=== PATIENT | male | born 2000 | race Caucasian/White ===

== ENCOUNTER 2025-02-18 09:38 | Inpatient (IN) | payer BC ==
[~2025-02-18] VITALS: Ht 193 cm; Wt 99.3 kg
[2025-02-18] MEDS: MORPHINE SULFATE 4 MG/ML INJ (FOR IV/IM USE) IV ONE (10:17)
[2025-02-18] MEDS: ONDANSETRON HCL 4MG/2ML INJ IV ONE (10:17)
[2025-02-18] MEDS: SODIUM CHLORIDE 0.9% 1,000 ML IV ONE (10:17)
[2025-02-18 10:34] LABS: BASOPHILS % 1.1 % (0.0-2.0); EOSINOPHILS % 0.5 % (0.0-5.0); HEMATOCRIT. 43.1 % (42.0-52.0); HEMOGLOBIN. 14.9 g/dL (14.0-18.0); LYMPHOCYTES % 29.1 % (20.0-50.0); MEAN PLATELET VOLUME 8.6 fl (7.4-10.4); MONOCYTES % 8.9 % (2.0-8.0); NEUTROPHILS % 60.4 % (40.0-76.0); PLATELET 276 x1000/uL (130-400); RED BLOOD CELL COUNT 4.83 mill/uL (4.7-6.1); RED CELL DISTRIBUTION WIDTH 13.7 % (11.6-14.6)
[2025-02-18 10:54] LABS: CREATININE 1.1 mg/dL (0.6-1.3); UREA NITROGEN BLOOD 14 mg/dL (9-23)
[2025-02-18 12:00] VITALS: O2SAT 100
[2025-02-18] MEDS: MORPHINE SULFATE 2 MG/ML INJ (NOT FOR IM USE) IV ONE ×2 (12:00→12:26)
[2025-02-18] MEDS: FENTANYL CITRATE/PF 50MCG/ML 2ML VIAL IV SCH (12:15)
[2025-02-18] MEDS: PROPOFOL 200MG/20ML VIAL IV ONE (12:26)
[2025-02-18] MEDS ORDERED: VANCOMYCIN HCL 1GM VIAL ONE (12:55)
[2025-02-18] MEDS ORDERED: BUPIVACAINE HCL/PF 0.5% (5MG/ML) 10ML ONE (12:55)
[2025-02-18] MEDS ORDERED: LIDOCAINE HCL/EPINEPHRINE 1%-EPI 1:100,000 20ML VIAL ONE (12:55)
[2025-02-18] MEDS ORDERED: LIDOCAINE HCL 1% 10 MG/ML 10ML VIAL ONE (12:55)
[2025-02-18] MEDS ORDERED: FENTANYL CITRATE/PF 50MCG/ML 2ML VIAL ONE (13:30)
[2025-02-18] MEDS ORDERED: SUCCINYLCHOLINE CHLORIDE 200MG/10ML IV ONE (13:31)
[2025-02-18] MEDS ORDERED: VECURONIUM BROMIDE 10 MG/VIAL IV ONE (13:31)
[2025-02-18] MEDS ORDERED: PROPOFOL 200MG/20ML VIAL IV ONE ×2 (13:31→13:39)
[2025-02-18] MEDS ORDERED: METOCLOPRAMIDE HCL 10MG/2ML VIAL ONE (13:39)
[2025-02-18] MEDS ORDERED: KETOROLAC 30MG/ML VIAL ONE (14:14)
[2025-02-18] MEDS ORDERED: ONDANSETRON HCL 4MG/2ML INJ ONE (14:14)
[2025-02-18] MEDS ORDERED: ONDANSETRON HCL 4MG/2ML INJ IV PRN ×2 (14:30→16:45)
[2025-02-18] MEDS ORDERED: HYDRALAZINE 20MG/ML VIAL IV PRN ×2 (14:30)
[2025-02-18] MEDS ORDERED: LABETALOL 5MG/ML 4ML INJ IV PRN (14:30)
[2025-02-18] MEDS ORDERED: GLYCOPYRROLATE 0.2 MG/ML 2ML VIAL ONE ×3 (14:33→14:34)
[2025-02-18] MEDS ORDERED: NEOSTIGMINE METHYLSULFATE 1MG/ML 10 ML VIAL ONE (14:34)
[2025-02-18] MEDS: MEPERIDINE HCL/PF 25MG/ML CPJ IV PRN (15:08)
[2025-02-18] MEDS: ACETAMINOPHEN 1,000MG/100ML PREMIX IV PRN (15:48)
[2025-02-18] MEDS: FAMOTIDINE 20MG/2ML VIAL IV PRN (15:49)
[2025-02-18] MEDS: HYDROMORPHONE HCL/PF 1MG/ML INJ IV PRN (16:39)
[2025-02-18] MEDS ORDERED: MAGNESIUM/ALUMINUM HYDROXIDE/SIMETHICONE 30ML UDC PO PRN (16:45)
[2025-02-18] MEDS ORDERED: GUAIFENESIN 200MG/10ML SUGAR FREE UDC PO PRN (16:45)
[2025-02-18] MEDS ORDERED: DOCUSATE SODIUM 100MG CAPSULE PO PRN (16:45)
[2025-02-18] MEDS ORDERED: ACETAMINOPHEN 325MG TABLET PO PRN (16:45)
[2025-02-18] MEDS ORDERED: IPRATROPIUM/ALBUTEROL 0.5-3(2.5)MG/3ML NEB HHN PRN (16:45)
[2025-02-18 20:00] VITALS: BP_SYST 120; BP_DIAS 67; BP_DIAS 69; PULSE 69; RESP 18; TEMP 36.4; TEMP 36.4736; O2SAT 100
[2025-02-18] MEDS ORDERED: IOHEXOL-350 100 ML BOTTLE ONE (23:34)
[2025-02-19] VITALS: BP 94/58; RESP 18; TEMP 36.6; O2SAT 98
[2025-02-19 04:00] VITALS: BP 108/58; RESP 18; TEMP 36.8; O2SAT 98
[2025-02-19 08:00] VITALS: BP 93/50; PULSE 61; RESP 18; TEMP 36.2; O2SAT 99
[2025-02-19 08:22] LABS: BASOPHILS % 0.3 % (0.0-2.0); EOSINOPHILS % 0.1 % (0.0-5.0); HEMATOCRIT. 39.3 % (42.0-52.0); HEMOGLOBIN. 13.7 g/dL (14.0-18.0); LYMPHOCYTES % 16.0 % (20.0-50.0); MEAN PLATELET VOLUME 8.6 fl (7.4-10.4); MONOCYTES % 14.7 % (2.0-8.0); NEUTROPHILS % 68.9 % (40.0-76.0); PLATELET 204 x1000/uL (130-400); RED BLOOD CELL COUNT 4.43 mill/uL (4.7-6.1); RED CELL DISTRIBUTION WIDTH 13.6 % (11.6-14.6)
[2025-02-19 08:30] LABS: CREATININE 0.9 mg/dL (0.6-1.3); UREA NITROGEN BLOOD 10 mg/dL (9-23)
[2025-02-19] MEDS: PANTOPRAZOLE SODIUM 40 MG/VIAL IV SCH (09:04)
[2025-02-19] MEDS: SODIUM CHLORIDE 0.9% 1,000 ML IV SCH (10:38)
[2025-02-19 12:00] VITALS: BP 94/48; PULSE 59; RESP 18; TEMP 36.3; O2SAT 97
[2025-02-19] MEDS: ACETAMINOPHEN 325MG TABLET PO PRN (14:52)
[2025-02-19 16:00] VITALS: BP 108/54; PULSE 64; RESP 18; TEMP 36.1; O2SAT 98
[2025-02-19 20:00] VITALS: BP 114/64; PULSE 62; RESP 20; TEMP 36.3; O2SAT 98
[2025-02-20] VITALS: PULSE 75
[2025-02-20 04:00] VITALS: PULSE 60
[2025-02-20 08:00] VITALS: BP 104/61; PULSE 54; RESP 18; TEMP 36.2; O2SAT 99
[2025-02-20 09:07] LABS: PLATELET 176 x1000/uL (130-400); RED BLOOD CELL COUNT 4.15 mill/uL (4.7-6.1); RED CELL DISTRIBUTION WIDTH 13.5 % (11.6-14.6)
[2025-02-20 12:00] VITALS: BP 121/64; PULSE 59; RESP 18; TEMP 36.2; O2SAT 59
[2025-02-20 16:00] VITALS: BP 112/60; PULSE 57; RESP 18; TEMP 36.4; O2SAT 99
[2025-02-20 20:00] VITALS: BP 121/66; PULSE 62; RESP 17; TEMP 36.6; O2SAT 97
[2025-02-21 05:00] VITALS: BP 107/57; PULSE 50; RESP 17; TEMP 36.6; O2SAT 99
[2025-02-21 05:25] VITALS: BP 107/57; PULSE 50; RESP 17; TEMP 97.9
== END 2025-02-21 12:20 | disposition home or self-care (01) | DRG 489 ==
LOC: ER 09:38 → 6WST 13:56 → ENRESERVTM 16:29 → ENRESERVDT 16:29 → EDBEDREQTM 16:34 → EDBEDREQSVC 16:34
PROVIDERS: ADMIT Internal Medicine; ATTEND Internal Medicine
PROC: 0QS Lower Bones, Reposition (ICD-10-PCS; principal; 2025-02-18)
PROC: 0SSDXZZ Reposition Left Knee Joint, External Approach (ICD-10-PCS; 2025-02-18)
DX: S83.115A Anterior dislocation of proximal end of tibia, left knee, initial encounter (principal); D64.9 Anemia, unspecified; D72.829 Elevated white blood cell count, unspecified; X58.XXXA Exposure to other specified factors, initial encounter; S84.12XA Injury of peroneal nerve at lower leg level, left leg, initial encounter; Y92.89 Other specified places as the place of occurrence of the external cause; Y93.89 Activity, other specified; Y99.8 Other external cause status
CPT/HCPCS: 27550; 36415; 73552; 73560; 73562; 73590; 73630; 75635; 76000; 80048; 85025; 85027; 93005; 93306; 93970; 99152; 99291; A4606; J0330; J0665; J1171; J1308; J1885; J2003; J2004; J2175; J2270; J2405; J2470; J2704; J2710; J2765; J3010; J3373; J3490; J7030; Q9967; C1713; J0131